=== PATIENT | female | born 1955 | race Caucasian/White ===

== ENCOUNTER 2017-01-28 11:19 | Outpatient (CLI) | payer BC ==
[2017-01-28 12:14] LABS: Hematocrit 43.2 % (36.0-47.0); Mean Platelet Volume 7.2 fL (7.4-10.4); Red Blood Cell (RBC) Count 4.66 mill/uL (4.20-5.40); White Blood Cell (WBC) Count 4.4 thou/uL (4.8-10.8)
[2017-01-28 12:29] LABS: Anion Gap 13 mmol/L (10-20); BUN (Urea Nitrogen) 17 mg/dL (9.8-20.1); Calc. Creatinine Clearance 0 mL/min (70-130); Calcium 9.9 mg/dL (7.8-10.44); Carbon Dioxide 28 mmol/L (23-31); Chloride 104 mmol/L (98-107); Estimated GFR-MDRD 81
--- OUTSIDE RECORDS SUMMARY | 2017-01-28 13:04 | XMS | Clinical Summary ---
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 Narrative #[id number] - MM, DIGITAL MAMMO, DIAGNOSTIC, BILATERAL INCLUDING CAD BILATERAL DIGITAL DIAGNOSTIC MAMMOGRAM 3D/2D WITH CAD: 12/05/2016 Comparison is made to exams dated:12/13/2015 mammogram and 12/01/2014 mammogram - [facility]. There are scattered fibroglandular elements in both breasts that could obscure a lesion on mammography. Tomosynthesis 3D imaging of the breast was also performed. Current study was also evaluated with a Computer Aided Detection (CAD) system. There are post operative findings in both breasts. No significant masses, calcifications, or other findings are seen in either breast. There has been no significant interval change. IMPRESSION: BENIGN There is no mammographic evidence of malignancy. A 1 year screening mammogram is recommended. Cris Polanco M.D. as/penrad:12/05/2016 09:17:06 Normal [facility] 1-2 Mammogram BI-RADS: 2 Benign G0204 Procedure Note Interface, External Ris In - 12/05/2016 2:23 PM CDT #[id number] - MM, DIGITAL MAMMO, DIAGNOSTIC, BILATERAL INCLUDING CAD BILATERAL DIGITAL DIAGNOSTIC MAMMOGRAM 3D/2D WITH CAD: 12/05/2016 Comparison is made to exams dated: 12/13/2015 mammogram and 12/01/2014 mammogram - [facility]. There are scattered fibroglandular elements in both breasts that could obscure a lesion on mammography. Tomosynthesis 3D imaging of the breast was also performed. Current study was also evaluated with a Computer Aided Detection (CAD) system. There are post operative findings in both breasts. No significant masses, calcifications, or other findings are seen in either breast. There has been no significant interval change. IMPRESSION: BENIGN There is no mammographic evidence of malignancy. A 1 year screening mammogram is recommended. Cris Polanco M.D. as/penrad:12/05/2016 09:17:06 Normal [facility] 1-2 Mammogram BI-RADS: 2 Benign G0204 from Last 3 Months
== END 2017-01-28 11:20 | disposition home or self-care (01) ==
LOC: LABBT 11:19
PROVIDERS: ATTEND Orthopaedic Surgery
DX: Z01.818 Encounter for other preprocedural examination (principal); M20.12 Hallux valgus (acquired), left foot
CPT/HCPCS: 80048; 85027

== ENCOUNTER 2017-02-05 05:51 | Day surgery (SDC) | payer BC ==
[2017-01-28 11:37] VITALS: BMI 26.3
--- NOTE | 2017-02-04 11:50 | HP ---
HISTORY OF PRESENT ILLNESS: The patient is a 62-year-old female who underwent a previous bunionectom y of the left foot in 2001 with initially good results, but has recently developed recurrent deformit y and pain which has persisted despite rest, restriction of activities, adjustments in shoe wear. Brandee pal also had a second toe hammertoe surgery in 2009 without further problems. PAST MEDICAL HISTORY: Please see the old chart. The patient recently had right wrist rotator cuff r epair by Dr. Gay, has recovered from this. PAST SURGICAL HISTORY: She has had previous bariatric surgery, lumpectomy for breast cancer and arth roscopic knee surgery. She has history of reflux. CURRENT MEDICATIONS: Include tamoxifen, Pristiq, Dexilant, Dyazide, Nexium, and Ambien. ALLERGIES: She has no known allergies. FAMILY HISTORY/SOCIAL HISTORY/REVIEW OF SYSTEMS: Otherwise unremarkable. PHYSICAL EXAMINATION: GENERAL: Reveals a healthy female. HEENT: Unremarkable. NECK: Supple. CHEST: Clear. HEART: Regular rate and rhythm. ABDOMEN: Soft, nontender. PELVIC/RECTAL/BREAST: Exams are deferred. EXTREMITIES: Pertinent findings related to the left foot. There is full range of motion of all join ts without pain or crepitus. There are palpable distal pulses. Sensation is intact. There is mild pes planus. There is mild tender prominence over the dorsal medial aspect of the great toe. Mild ca llus over the plantar aspect of the first MP and IP joint, mild hallux valgus, previous wounds are he aled. NEUROVASCULAR: Exam is intact. There is no instability. LABORATORY AND X-RAY FINDINGS: X-rays of the right foot revealed mild hallux valgus changes from the previous surgery. IMPRESSION: Recurrent hallux valgus, left foot. PLAN: Simple bunionectomy. The nature of the surgery, length of recovery, and potential complicatio ns such as infection, loss of motion, incomplete relief, recurrent deformity and hallux varus, thromb oembolic phenomena, and need for additional or repeat surgery have been discussed in detail.
[2017-02-05] MEDS ORDERED: Fentanyl 100 MCG/2 ML VIAL ONE (06:19)
[2017-02-05] MEDS ORDERED: CEFAZOLIN/Water 2 GM/20 ML SYRINGE ONE (06:40)
[2017-02-05] MEDS ORDERED: Bupivacaine PF 0.5% 30 ML VIAL ONE (06:41)
[2017-02-05] MEDS ORDERED: Midazolam HCl 2 mg/2 ml Vial ONE (06:53)
[2017-02-05] MEDS ORDERED: Propofol 500 MG/50 ML VIAL ONE (07:23)
--- NOTE | 2017-02-05 09:11 | OP ---
DATE OF PROCEDURE: 02/05/2017 SURGEON: Александр Cerda M.D. ANESTHESIA: General. PREOPERATIVE DIAGNOSES: Recurrent hallux valgus, left foot. POSTOPERATIVE DIAGNOSES: Recurrent hallux valgus, left foot. PROCEDURE: Simple bunionectomy, left foot. NARRATIVE REPORT: After satisfactory anesthesia was induced in supine position, the patient was prep ped and draped in the routine manner. Left leg was elevated, exsanguinated with an Esmarch bandage, and the tourniquet inflated to 300 mmHg. The previous incision was made along the medial aspect of t he left great toe, carried down to subcutaneous tissues. Bleeding points were controlled with cauter y. Dorsal sensory branch was retracted and protected throughout the procedure. A horizontal incisio n was made in the capsule of the MP joint just proximal to the joint and a segment of approximately 4 mm was excised and the first metatarsal subperiosteally exposed. There was slight prominence medial ly, but most of it was somewhat dorsomedially. The prominence was excised with an oscillating saw an d rongeur and smoothed with a rasp. The MP joint was distracted and a 15 blade was inserted and the lateral capsule was pie crusted to help release the valgus deformity. The wound was copiously irriga bill. Then, the subcutaneous tissues injected with 10 mL of 0.5% Marcaine. The medial capsule was th en repaired with interrupted 0 Vicryl holding the toe in a corrected position. There appeared to be good alignment and removal of the prominence. Subcutaneous tissues were closed with interrupted 2-0 Vicryl, and skin closed with interrupted 3-0 nylon. A sterile bulky compressive dressing was applied and the tourniquet deflated after 33 minutes. The foot promptly pinked up. The patient was placed into a postoperative shoe, awakened and taken to recovery room in stable condition. There were no ap parent intraoperative complications. The estimated blood loss was negligible. The patient will be discharged home in satisfactory condition. She was instructed on ice, elevation, and ambulation with crutches or walker, partial weightbearing. She will leave the current dressing intact. She was given a prescription for [place] 10 for pain, 60 tablets. She will be rechecked in my office in approximately 2 weeks or sooner if there are any problems prior to that time.
[2017-02-05] MEDS ORDERED: HYDROcodone/Acetaminophen 5/325 mg Tablet ONE (10:10)
--- NOTE | 2017-02-09 08:41 | EKG ---
Test Reason : PREOP Blood Pressure : / mmHG Vent. Rate : 066 BPM Atrial Rate : 066 BPM P-R Int : 160 ms QRS Dur : 084 ms QT Int : 424 ms P-R-T Axes : 013 015 039 degrees QTc Int : 444 ms Normal sinus rhythm with sinus arrhythmia Normal ECG When compared with ECG of 27-SEP-2016 15:14, No significant change was found Confirmed by Mica ASKEW ([id number]) on 02/09/2017 8:41:22 AM Referred By: NIRANJAN Confirmed By:Mica ASKEW
== END 2017-02-05 12:18 | disposition home or self-care (01) ==
LOC: SDC 05:51
PROVIDERS: ATTEND Orthopaedic Surgery
PROC: 0QBR0ZZ Excision of Left Toe Phalanx, Open Approach (ICD-10-PCS; principal; 2017-02-05)
DX: M20.12 Hallux valgus (acquired), left foot (principal); K21.9 Gastro-esophageal reflux disease without esophagitis; M26.609 Unspecified temporomandibular joint disorder, unspecified side; C50.912 Malignant neoplasm of unspecified site of left female breast; Z79.899 Other long term (current) drug therapy; Z98.84 Bariatric surgery status; Z98.41 Cataract extraction status, right eye; Z90.89 Acquired absence of other organs; Z98.890 Other specified postprocedural states; Z87.11 Personal history of peptic ulcer disease
CPT/HCPCS: 93005; 93010; G8978-GP-CI; G8979-GP-CI; G8980-GP-CI; J2250; J2704; J3010; S0020

== ENCOUNTER 2019-02-25 08:04 | Outpatient (CLI) | payer BC ==
--- NOTE | 2019-02-25 08:58 | BD ---
DEXA BONE MINERAL DENSITY STUDY: FINDINGS: Lumbar Spine: BMD (g/cm2) L1 0.966 T-Score: -0.2 L2 0.904 T-Score: -1.1 L3 1.004 T-Score: -0.7 L4 0.884 T-Score: -1.6 L1-L4 0.940 T-Score: -1.0 Femoral Neck: 0.748 T-Score: -0.9 Total Femur: 0.888 T-Score: -0.4 Impression: Normal bone mineral densities of the lumbar spine and left femoral neck. POS: TPC
== END 2019-02-25 08:05 | disposition home or self-care (01) ==
LOC: BICMAMMO 08:04
PROVIDERS: ATTEND Obstetrics & Gynecology
DX: Z13.820 Encounter for screening for osteoporosis (principal); M85.80 Other specified disorders of bone density and structure, unspecified site; M81.0 Age-related osteoporosis without current pathological fracture; Z79.890 Hormone replacement therapy
CPT/HCPCS: 77080

== ENCOUNTER 2019-11-17 06:48 | Day surgery (SDC) | payer BC ==
[2019-11-12 13:43] VITALS: BMI 29.0
[2019-11-17] MEDS ORDERED: Bupivacaine 0.25% HCL 30 ML VIAL ONE (08:04)
[2019-11-17] MEDS ORDERED: Lidocaine 1% w/Epinephrine 1:100K 20 ML VIAL ONE (08:04)
[2019-11-17] MEDS ORDERED: Fentanyl 100 MCG/2 ML VIAL ONE ×3 (08:25→10:05)
[2019-11-17] MEDS ORDERED: Midazolam HCl 2 mg/2 ml Vial ONE (09:19)
[2019-11-17] MEDS ORDERED: Ondansetron PF 4 MG/2 ML Vial ONE (09:37)
[2019-11-17] MEDS ORDERED: Rocuronium Bromide 10 MG/ML (10ML VIAL) ONE (09:37)
[2019-11-17] MEDS ORDERED: diphenhydrAMINE 50 MG/ML VIAL ONE (09:37)
[2019-11-17] MEDS ORDERED: Lidocaine 1% PF 5 ML VIAL ONE (09:37)
[2019-11-17] MEDS ORDERED: PROPOFOL 200 MG/20 ML VIAL ONE (09:37)
[2019-11-17] MEDS ORDERED: Dexamethasone 20 MG/5 ML VIAL ONE (09:37)
[2019-11-17] MEDS ORDERED: Glycopyrrolate 0.2 MG/ML 5 ML SYRINGE ONE (09:37)
[2019-11-17] MEDS ORDERED: EPHEDRINE 25 MG/5 ML SYRINGE ONE (09:37)
[2019-11-17] MEDS ORDERED: HYDROcodone/Acetaminophen 5/325 mg Tablet ONE (11:22)
--- NOTE | 2019-11-18 08:52 | OP ---
DATE OF PROCEDURE: 11/17/2019 PREOPERATIVE DIAGNOSIS: Umbilical hernia. PROCEDURE PERFORMED: Umbilical hernia repair with mesh. INDICATIONS: This is a 64-year-old female. She has had a previous abdominoplasty and she developed a bulge periumbilical. She had a CT showing prolapse of tissue there consistent with hernia. FINDINGS: Very weak fascia subumbilical. I wound up using an 8 cm [place] of mesh to reinforce the area. DESCRIPTION OF PROCEDURE: After informed consent was obtained, the patient was taken to the operating room and given general mask anesthesia, placed in supine position. Her abdomen was prepped and draped in the usual fashion. Local anesthesia was infiltrated subcutaneously and deep. A subumbilical incision was performed using care to preserve the umbilical blood flow. I wound up going straight down to the fascia and then worked along the fascia superiorly, trying to maintain the blood flow to that umbilical skin. I completely unroofed about 4 cm of abdominal wall. There was a plication stitch that was of a green Ethibond that was removed. I could not find a definite defect. The fascia was extremely thin. Opened up the fascia and went subfascially, felt around and reduced some fat tissue there and created a space and inserted an 8 cm Proceed mesh in the subumbilical area. The mesh was sutured down with interrupted 0 Ethibond suture. Then, the umbilical tissue was sutured to the fascia inferiorly to flatten it out so it was not bulging in that region, and then the skin closed with interrupted 4-0 Rapide. Steri-Strips applied. Sterile bandage applied. The patient tolerated the procedure well, transferred to Recovery in good condition. Sponge and needle count verified correct x2. Job ID: [id number]
== END 2019-11-17 13:00 | disposition home or self-care (01) ==
LOC: SDC 06:48
PROVIDERS: ATTEND Surgery
PROC: 0WUF0JZ Supplement Abdominal Wall with Synthetic Substitute, Open Approach (ICD-10-PCS; principal; 2019-11-17)
DX: K42.9 Umbilical hernia without obstruction or gangrene (principal); K21.9 Gastro-esophageal reflux disease without esophagitis; Z79.899 Other long term (current) drug therapy
CPT/HCPCS: C1781; J0690; J1100; J1200; J2250; J2405; J2704; J3010; S0020

== ENCOUNTER 2020-12-29 07:37 | Outpatient (CLI) | payer MEDICARE, BC | END 2020-12-29 07:38 | disposition home or self-care (01) | LOC: TBSIIMAG 07:37 | PROVIDERS: ATTEND Orthopaedic Surgery | DX: M47.816 Spondylosis without myelopathy or radiculopathy, lumbar region (principal); M70.61 Trochanteric bursitis, right hip; S73.101A Unspecified sprain of right hip, initial encounter; M76.9 Unspecified enthesopathy, lower limb, excluding foot; M48.061 Spinal stenosis, lumbar region without neurogenic claudication; M48.07 Spinal stenosis, lumbosacral region | CPT/HCPCS: 72148 ==

== ENCOUNTER 2021-03-01 09:03 | Outpatient (CLI) | payer MEDICARE, BC ==
[2021-03-01 11:08] LABS: #Basophils 0.1 10x3/uL (0.0-0.2); #Eosinphils 0.3 10x3/uL (0.0-0.5); #Monocytes 0.4 10x3/uL (0.0-1.1); #Neutrophils 2.3 10x3/uL (1.5-8.4); %Basophils 1.1 % (0.0-2.0); %Eosinophils 6.1 % (0.0-6.0); %Lymphocytes 33.2 % (18.0-47.0); %Monocytes 9.2 % (0.0-10.0); %Neutrophils 50.2 % (40.0-75.0); Hemoglobin 13.2 g/dL (12.0-15.5); Mean Corpuscular HGB CONC 31.9 g/dL (32.0-36.0); Mean Corpuscular Hemoglobin 30.5 pg (27.0-33.0); Mean Corpuscular Volume 95.6 fl (81.6-98.3); Mean Platelet Volume 10.4 fl (7.4-10.4); Platelet Count 225 10x3/uL (150-450); RBC Distribution Width 12.7 % (11.5-14.5); Red Blood Cell (RBC) Count 4.33 10x6/uL (3.90-5.03); White Blood Cell (WBC) Count 4.6 10x3/uL (3.5-10.5)
[2021-03-01 11:21] LABS: Bilirubin Neg (Negative); Blood, Urine Negative (Negative); Clarity Clear (Clear); Glucose, Urine (Dipstick) Normal (Negative); Ketone, Urine Negative (Negative); Leukocyte Negative (Negative); Nitrite Negative (Negative); Protein, Urine (Dipstick) Negative (Neg-Trace); Urobilinogen Normal mg/dL (Less than 2)
[2021-03-02 11:05] LABS: SARS-CoV-2 PCR by NAA DETECTED (NotDetected)
== END 2021-03-01 09:04 | disposition home or self-care (01) ==
LOC: LABBT 09:03
PROVIDERS: ATTEND Orthopaedic Surgery Hand Surgery
DX: U07.1 COVID-19 (principal); Z01.818 Encounter for other preprocedural examination
CPT/HCPCS: 81003; 85025; 93005; U0003; U0005; 93010

== ENCOUNTER 2021-10-15 11:08 | Outpatient (CLI) | payer MEDICARE, BC | END 2021-10-15 11:09 | disposition home or self-care (01) | LOC: MRI 11:08 | PROVIDERS: ATTEND Orthopaedic Surgery | DX: M75.42 Impingement syndrome of left shoulder (principal); M75.122 Complete rotator cuff tear or rupture of left shoulder, not specified as traumatic; M75.92 Shoulder lesion, unspecified, left shoulder ==

== ENCOUNTER 2021-11-02 09:23 | Outpatient (CLI) | payer MEDICARE, BC ==
[2021-11-02 10:18] LABS: #Eosinphils 0.3 10x3/uL (0.0-0.5); #Monocytes 0.4 10x3/uL (0.0-1.1); %Eosinophils 7.1 % (0.0-6.0); %Lymphocytes 42.9 % (18.0-47.0); %Monocytes 8.5 % (0.0-10.0); Mean Corpuscular HGB CONC 32.8 g/dL (32.0-36.0); Mean Corpuscular Hemoglobin 30.8 pg (27.0-33.0); Mean Corpuscular Volume 94.1 fl (81.6-98.3); Platelet Count 202 10x3/uL (150-450); RBC Distribution Width 12.2 % (11.5-14.5); Red Blood Cell (RBC) Count 4.54 10x6/uL (3.90-5.03); White Blood Cell (WBC) Count 4.1 10x3/uL (3.5-10.5)
[2021-11-02 10:19] LABS: #Neutrophils 1.7 10x3/uL (1.5-8.4); %Neutrophils 40.5 % (40.0-75.0)
[2021-11-02 10:47] LABS: Anion Gap 13 mmol/L (10-20); BUN (Urea Nitrogen) 21 mg/dL (9.8-20.1); Calc. Creatinine Clearance 0 mL/min (70-130); Calcium 9.8 mg/dL (7.8-10.44); Carbon Dioxide 27 mmol/L (23-31); Chloride 103 mmol/L (98-107); Estimated GFR 60; Glucose 90 mg/dL (80-115); Potassium 4.5 mmol/L (3.5-5.1); Sodium 138 mmol/L (136-145)
== END 2021-11-02 09:24 | disposition home or self-care (01) ==
LOC: LABBT 09:23
PROVIDERS: ATTEND Orthopaedic Surgery
DX: Z01.818 Encounter for other preprocedural examination (principal); S46.012A Strain of muscle(s) and tendon(s) of the rotator cuff of left shoulder, initial encounter; Z20.822 Contact with and (suspected) exposure to COVID-19
CPT/HCPCS: 71046; 80048; 85025; 87811; 93005; 93010